=== PATIENT | female | born 1945 | race Caucasian/White ===

== ENCOUNTER → 2020-01-08 | Outpatient (CLI) | payer OTHER | LOC: LAB 09:41 | PROVIDERS: ATTEND Ophthalmology | DX: Z01.812 Encounter for preprocedural laboratory examination (principal); Z20.828 Contact with and (suspected) exposure to other viral communicable diseases ==

== ENCOUNTER → 2020-01-11 | Day surgery (SDC) | payer OTHER ==
[~2020-01-11] VITALS: Ht 152.4 cm; Wt 63.0 kg
[~2020-01-11] MED LIST: ASA81BEC PO; CITRACAL + D E1 EACH PO; COQ-10100 MG PO; FISH OIL 1,2001 EAC4 PO; FLONASE 0.05%50 MCG NASAL; GABAPENTIN600 M1 PO; LIPITOR10 MG PO; MELATONIN5 MG PO; MELOXICAM15 MG PO; PREVACID15 MG PO; PROBIOTIC1 EAC7 PO; PROTONIX40 M2 PO; SPIRONOLACTONE25 MG PO; VALACYCLOVIR1000 MG PO; VITAMIN B-121000 MC2 PO; VITAMIN C500 M1 PO; ZYRTEC10 M5 PO
--- NOTE | ~2020-01-11 | O ---
[facility] [place] [address] OPERATIVE REPORT Name: HERIBERTO EWING Room #: REG [facility].#: [id number] Admission: 01/11/20 Attend Phys: Kareem Yu MD Discharge: Date of : 49 Report #: [id number] THIS REPORT FOR: cc: Stevenson Obrien MD, Paul M. MD White,Kareem Mitchell MD ~ CC: Stevenson Yu DATE OF SERVICE: 01/11/2020 SURGEON: Kareem Yu MD TOOL DESIGN ENGINEER: None. PREOPERATIVE DIAGNOSIS: Bilateral upper lid dermatochalasia with superior visual field defect. POSTOPERATIVE DIAGNOSIS: Bilateral upper lid dermatochalasia with superior visual field defect. OPERATION PERFORMED: Bilateral upper lid functional blepharoplasty. ANESTHESIA: Local with IV sedation. COMPLICATIONS: None. INDICATIONS FOR SURGERY: This patient has acquired upper lid dermatochalasia with superior visual field loss both eyes because of excessive upper lid tissues to include skin and fat. Visual field testing demonstrates dense superior visual defects. Retesting with the upper lid elevated shows an improvement in visual field loss of over 30% and in excess of 12 degrees. The current procedures are undertaken in order to improve the patient's visual function. Informed consent was obtained to include but not limited to the loss of vision, bleeding, infection, scarring, failure to improve the problem and need for further surgery. DESCRIPTION OF OPERATION: The patient was taken to the operating room, where 2% Xylocaine with epinephrine mixed with equal parts of 0.75% Marcaine with Wydase was administered transcutaneously to each upper lid. The patient was then prepped and draped in the usual sterile fashion and a skin-marking pen was then utilized to outline an upper lid crease that was symmetrical on each side. Graefe forceps were then used to quantitate the redundant upper lid skin and it [address] [address] OPERATIVE REPORT Name: HERIBERTO EWING Room #: REG [facility].#: [id number] Admission: 01/11/20 Attend Phys: Kareem Yu MD Discharge: Date of : 49 Report #: [id number] was similarly outlined. The incisions were then made with Carlito scissors and a skin-muscle flap removed from each side with high-temp cautery. Hemostasis was achieved with the monopolar cautery as it was throughout the case. The orbital septum was then identified and the central and medial fat pads were inspected. The redundant soft tissue was then sculpted with the monopolar cautery. The upper lid crease was then reformed with tightening of the pretarsal orbicularis muscle. The upper lid crease was then further reformed with multiple interrupted 6-0 chromic sutures. The skin was then closed with a running 6-0 plain gut suture. The wound was then cleaned and dressed with ophthalmic antibiotic ointment and a nonstick dressing. The patient was transported to the recovery area, where cold compresses were applied, having tolerated the procedure well with no anesthetic or operative complications being noted. By: [id number] Kareem Yu MD /nt
[2020-01-11 09:46] VITALS: BP 103/89
== END | disposition home or self-care (01) ==
LOC: OR
PROVIDERS: ATTEND Ophthalmology
DX: H02.834 Dermatochalasis of left upper eyelid (principal); H02.831 Dermatochalasis of right upper eyelid; H53.462 Homonymous bilateral field defects, left side; H53.461 Homonymous bilateral field defects, right side; E78.00 Pure hypercholesterolemia, unspecified; K21.9 Gastro-esophageal reflux disease without esophagitis; Z98.890 Other specified postprocedural states; Z79.899 Other long term (current) drug therapy; Z98.41 Cataract extraction status, right eye; Z98.42 Cataract extraction status, left eye; Z90.710 Acquired absence of both cervix and uterus; Z96.651 Presence of right artificial knee joint
CPT/HCPCS: 50010; 50101; 50386; 50398; 51636; 56531; 62110; 62850; 70005